=== PATIENT | male | born 1950 | race Caucasian/White ===

== ENCOUNTER → 2016-02-14 | Day surgery (SDC) | payer MEDICAID ==
[~2016-02-14] MED LIST: MIDAZOLAM 2 MG/2 ML VIAL ONE; PROPOFOL 200 MG/20 ML VIAL ONE
--- NOTE | 2016-02-14 10:56 | GPN ---
[f rep st] PROCEDURE NOTE PREPROCEDURE DIAGNOSIS: Need for screening colonoscopy. POSTPROCEDURE DIAGNOSIS: Small colon polyps removed. PROCEDURES: Colonoscopy with biopsies. ANESTHESIA: Monitored anesthesia care. INDICATIONS: The patient is a 65-year-old gentleman, without history of colon cancer in the family. He is here for his first screening colonoscopy. He has no symptoms. The risks, benefits of procedu re were discussed with the patient and consent obtained. Risks include, but not limited to, bleeding , perforation, risks related to sedation. The patient is ASA class 2. DESCRIPTION OF PROCEDURE: The adult colonoscope was advanced to the terminal ileum with ease. The t erminal ileum appears normal. The appendiceal orifice, cecum, IC valve, ascending colon, hepatic fle xure, appears normal. There was a 2 mm polyp in the transverse colon, which was removed with cold bi opsy forceps and sent off to Pathology. Splenic flexure was normal. The descending colon was normal . The sigmoid colon showed mild diverticulosis. The rectum showed a small 2 mm polyp which was netta roxy with cold biopsy forceps. Retroflexed views in the rectum were normal. IMPRESSION: 1. 2 small colon polyps, removed using cold biopsy forceps, one from the transverse colon and one fr om the rectum. 2. Mild left-sided diverticulosis. RECOMMENDATIONS: 1. Discharge to home with escort. 2. Advance diet as tolerated. He should be on a high-fiber diet. 3. Continue current medications. 4. Follow up with the final pathology results. They will be available within 10 days. 5. Repeat colonoscopy based on pathology results. If either biopsy shows an adenomatous polyp, he s hould have repeat colonoscopy in 5 years. Thank you for allowing me to participate in the care of your patient. Please do not hesitate to call with questions. /[id number]/MODL
== END | disposition home or self-care (01) ==
LOC: FSGY 07:32
PROVIDERS: ATTEND Internal Medicine Gastroenterology
PROC: 0DBL8ZX Excision of Transverse Colon, Via Natural or Artificial Opening Endoscopic, Diagnostic (ICD-10-PCS; principal; 2016-02-14 09:30)
PROC: 0DBP8ZX Excision of Rectum, Via Natural or Artificial Opening Endoscopic, Diagnostic (ICD-10-PCS; principal; 2016-02-14 09:30)
DX: K62.1 Rectal polyp (principal); K63.5 Polyp of colon; K57.30 Diverticulosis of large intestine without perforation or abscess without bleeding; I10 Essential (primary) hypertension
CPT/HCPCS: J2250; J2704

== ENCOUNTER → 2016-07-12 | Outpatient (CLI) | payer MEDICAID ==
[~2016-07-12] MED LIST changes: +GADOBUTROL 10 ML VIAL IVP ONE; -MIDAZOLAM 2 MG/2 ML VIAL ONE; -PROPOFOL 200 MG/20 ML VIAL ONE
== END ==
LOC: FIMAGING 11:26
PROVIDERS: ATTEND Physician Assistant
DX: I77.810 Thoracic aortic ectasia (principal)
CPT/HCPCS: A9585; C8909

== ENCOUNTER → 2017-07-09 | Outpatient (CLI) | payer MEDICAID | LOC: FIMAGING 07:01 | PROVIDERS: ATTEND Physician Assistant | DX: R93.1 Abnormal findings on diagnostic imaging of heart and coronary circulation (principal) | CPT/HCPCS: A9585; C8909 ==

== ENCOUNTER 2017-07-17 06:26 | Emergency (ER) | payer MEDICAID ==
[2017-07-17 06:31] VITALS: BP 176/95
[2017-07-17] MEDS ORDERED: TDAP ADULT 0.5 ML INJ (BOOSTRIX) IM ONE (06:40)
--- NOTE | 2017-07-17 06:44 | EDPHY ---
H & P Stated Complaint: Lac, L index finger - Personal History Current Tetanus Diphtheria and Acellular Pertussis (TDAP): No - Medical/Surgical History Hx Asthma: No Hx Chronic Respiratory Disease: No Hx Diabetes: No Hx Cardiac Disease: No Hx Renal Disease: No Hx Cirrhosis: No Hx Alcoholism: No Hx HIV/AIDS: No Hx Splenectomy or Spleen Trauma: No Other PMH: Hep C - Social History Smoking Status: Never smoked Time Seen by Provider: 07/17/17 06:39 HPI/ROS: Chief Complaint: Finger injury HPI: 66-year-old male states that he was camping. He accidentally dropped a rock he was holding with his right hand into his left index finger. He sustained a laceration to the side of his finger. Denies prior injuries. He is not up-to-date in his tetanus shot. ROS: 10 point Review of Systems is negative except as noted in the HPI. PMH: Hypertension Social History: No smoking, no alcohol, no recreational drug use Family History: non-contributory Physical Exam: General: Awake, alert, no acute distress Left hand: Patient has edema over his PIP joint. There is a laceration on that ulnar aspect of his finger which extends from his proximal to his middle phalanx. Sensation is intact medial laterally distally. He has full flexion extension strength. Capillary refills less than 2 sec. He has no tenderness along the flexor extensor tendon sheath. There is no erythema. There is no discharge. Skin: No rash (Rodríguez Mejía) Constitutional: Initial Vital Signs Temperature (C) 36.8 C 07/17/17 06:29 Heart Rate 58 L 07/17/17 06:29 Respiratory Rate 20 07/17/17 06:29 Blood Pressure 176/95 H 07/17/17 06:29 O2 Sat (%) 96 07/17/17 06:29 O2 Delivery Mode Room Air Allergies/Adverse Reactions: No Known Allergies Allergy (Verified 07/17/17 06:28) Home Medications: Medication Instructions Recorded Hydrochlorothiazide [HCTZ (*)] 07/28/11 Lisinopril [Zestril 10 mg (*)] 07/28/11 Reconciled 07/28/11 See Comments 07/28/11 Cephalexin [Keflex (*)] 500 mg PO BID #10 cap 07/17/17 Medical Decision Making Procedures: Procedure: Digital nerve block, indication is digit anesthesia for procedure. Patient was prepped with chlorhexidine Skin prep. 0.5% bupivacaine was infiltrated in the medial in lateral aspects with a dorsal approach at the base of the proximal phalanx with blockage of both dorsal and volar nerves. Total of 1 mL was infiltrated. There were no complications. Procedure was performed by myself. Procedure: Laceration repair. Verbal consent was obtained from the patient. The 2.5 cm laceration on the left index finger was anesthetized with a digital nerve block.. The wound was irrigated, draped and explored to its base with a gloved finger. There were no deep structures involved. No tendon injury was identified. The wound was repaired with 6, 5-0 Ethilon simple interrupted sutures. The wound repair was uncomplicated. The procedure was performed by myself. (Rodríguez Mejía) ED Course/Re-evaluation: 66-year-old male sustained a crush injury to his left index finger. He is neurovascularly intact. Has full flexion extension strength. Minimal bony tenderness but he has edema to his PIP joint. He has been anesthetize the digital nerve block. I have ordered a tetanus booster. I have ordered an x- ray to rule out acute bony injury or foreign body. There is a small avulsion fracture on the middle phalanx. Wound has been closed by me. Will send him home with Keflex. Referred for hand surgery for outpatient follow-up. (Rodríguez Mejía) - Data Points Medications Given: Discontinued Medications Diphtheria/Tetanus/Acell Pertussis (Boostrix) 0.5 ml IM .ONCE ONE Stop: 07/17/17 06:41 Last Admin: 07/17/17 06:44 Dose: 0.5 ml Departure - Departure Disposition: Home, Routine, Self-Care Clinical Impression: Finger laceration Qualifiers: Encounter type: initial encounter Finger: index finger Damage to nail status: without damage Foreign body presence: without foreign body Laterality: left Qualified Code(s): S61.211A - Laceration without foreign body of left index finger without damage to nail, initial encounter Open finger fracture Qualifiers: Encounter type: initial encounter Finger: index finger Phalanx: middle Fracture alignment: nondisplaced Laterality: left Qualified Code(s): S62.651B - Nondisplaced fracture of middle phalanx of left index finger, initial encounter for open fracture Condition: Good Instructions: Diphtheria/Acellular Pertussis/Tetanus Booster Vaccine (By injection), Finger Laceration (ED) Additional Instructions: Sutures need to be removed in 10 days. Follow up with hand surgeon in 3-4 days for further evaluation. Return to the emergency department for increasing redness, discharge from the wound, fevers or chills, red streaking up your hand, worsening pain, or any other concerns. Referrals: Lizzette Herrera [Primary Care Provider] - As per Instructions Kody Lange MD [Medical Doctor] - As per Instructions Prescriptions: Cephalexin [Keflex (*)] 500 mg PO BID #10 cap
== END 2017-07-17 07:39 | disposition home or self-care (01) ==
PROC: 0HQGXZZ Repair Left Hand Skin, External Approach (ICD-10-PCS; principal; 2017-07-17)
DX: S62.651B Nondisplaced fracture of middle phalanx of left index finger, initial encounter for open fracture (principal); I10 Essential (primary) hypertension; Z23 Encounter for immunization; W20.8XXA Other cause of strike by thrown, projected or falling object, initial encounter

== ENCOUNTER 2017-10-24 13:06 | Day surgery (SDC) | payer MEDICAID ==
--- NOTE | 2017-10-23 16:37 | GHP ---
ADMISSION DIAGNOSIS: Ureteral calculus. Shows referred by Dr. Lizzette Herrera for evaluation of hematuria and left flank pain and CAT scan revealed an 8 x 5 mm left ureteral stone with moderate hydronephrosis. He also has significant BPH and he is admitted for ureteroscopy. PAST HISTORY: Hydrocele, kidney stones, hypertension, and hematuria. PAST SURGERY: Pyloric stenosis, hand surgery, appendectomy. MEDICATIONS: hydrochlorothiazide. ALLERGIES: None. FAMILY HISTORY: Hypertension. SOCIAL HISTORY: Nondrinker, unemployed, nonsmoker. REVIEW OF SYSTEMS: Negative for cardiac, respiratory, GI, and endocrine. PHYSICAL EXAM: VITAL SIGNS: Stable with a blood pressure of 176/102, in the office BMI of 25.84. CHEST: Clear. HEART: Regular rate and rhythm. ABDOMEN: Normal. No organomegaly, rebound, or guarding. GENITAL: He does have bilateral hydroceles. LOWER EXTREMITIES: Normal. He is admitted for the above procedure. Indications, complications discussed. Written and verbal consent were obtained and he is admitted as noted. /[id number]/MODL MTDD
--- NOTE | 2017-10-24 07:52 | PDHPUP ---
History & Physical Update H&P update statement: This history and physical update is based on an assessment of the patient which was completed after admission or registration (within 24 hours), but prior to the surgery/procedure. H&P update: H&P reviewed & patient examined, no change in patient's condition since H&P completed
[2017-10-24] MEDS ORDERED: ceFAZolin 2 GM/DEXTROSE 100 ML IV ONE (13:21)
[2017-10-24] MEDS ORDERED: LR 1,000 ML IV ONE (13:22)
[2017-10-24] MEDS ORDERED: IOPAMIDOL (ISOVUE-M 300) 15 ML VIAL ONE (13:33)
[2017-10-24] MEDS ORDERED: LIDOCAINE 2% JELLY 20 ML (UROJECT) ONE ×2 (13:33→14:14)
--- NOTE | 2017-10-24 14:13 | PDANEPAE ---
ANE Past Medical History - Cardiovascular History Hx Hypertension: Yes Hx Arrhythmias: No Hx Chest Pain: No Hx Coronary Artery / Peripheral Vascular Disease: No Hx CHF / Valvular Disease: No Hx Palpitations: No - Pulmonary History Hx COPD: No Hx Asthma/Reactive Airway Disease: No Hx Recent Upper Respiratory Infection: No Hx Oxygen in Use at Home: No Hx Sleep Apnea: No Pulmonary History Comment: epiglottis flap "sealing". - Neurologic History Hx Cerebrovascular Accident: Yes Hx Seizures: No Hx Dementia: No Neurologic History Comment: CVA - no deficits - Endocrine History Hx Diabetes: No - Renal History Hx Renal Disorders: No Renal History Comment: kidney stones - - Liver History Hx Hepatic Disorders: Yes Hepatic History Comment: Hepatitis A from seafood in [place]- remote hx. - Neurological & Psychiatric Hx Hx Neurological and Psychiatric Disorders: No - Cancer History Hx Cancer: No - Congenital Disorder History Hx Congenital Disorders: No - GI History Hx Gastrointestinal Disorders: Yes Gastrointestinal History Comment: 12-26 epiglottis flap was ineffective- Speech Tx helps pt manage it. - Chronic Pain History Chronic Pain: No - Surgical History Prior Surgeries: appy age 18, pyloric stenosis, right hand surgery ANE Review of Systems Review of Systems: - Exercise capacity METS (RN): 4 METS ANE Patient History - Allergies Allergies/Adverse Reactions: No Known Allergies Allergy (Verified 07/17/17 06:28) - Home Medications Home Medications: Atorvastatin Calcium 10/24/17 [Last Taken 10/24/17] Losartan/Hydrochlorothiazide 10/24/17 [Last Taken 10/24/17] - NPO status NPO Since - Liquids (Date): 10/24/17 NPO Since - Liquids (Time): 11:30 NPO Since - Solids (Date): 10/23/17 NPO Since - Solids (Time): 19:00 - Smoking Hx Smoking Status: Never smoked - Family Anes Hx Family Hx Anesthesia Complications: None. ANE Labs/Vital Signs - Vital Signs Blood Pressure: 137/84 Heart Rate: 56 Respiratory Rate: 18 O2 Sat (%): 95 Height: 172.72 cm Weight: 79.832 kg ANE Physical Exam - Airway Neck exam: FROM Mallampati Score: Class 2 Mouth exam: normal dental/mouth exam - Pulmonary Pulmonary: no respiratory distress - Cardiovascular Cardiovascular: regular rate and rhythym - ASA Status ASA Status: II ANE Anesthesia Plan Anesthesia Plan: general endotracheal anesthesia
[2017-10-24] MEDS ORDERED: MIDAZOLAM 2 MG/2 ML VIAL ONE (14:16)
[2017-10-24] MEDS ORDERED: PROPOFOL 200 MG/20 ML VIAL ONE (14:16)
[2017-10-24] MEDS ORDERED: fentaNYL 100 MCG/2 ML INJ ONE ×2 (14:16)
[2017-10-24] MEDS ORDERED: LIDOCAINE 2% 100 MG/5 ML SYR ONE (14:17)
[2017-10-24] MEDS ORDERED: GLYCOPYRROLATE 0.2 MG/1 ML VIAL ONE ×2 (15:16)
[2017-10-24] MEDS ORDERED: NEOSTIGMINE METHYLSULFATE 5 MG/5 ML SYR ONE (15:16)
--- NOTE | 2017-10-24 15:23 | POSTOPPROG ---
Post Op Note Date of Operation: 10/24/17 (dictated) Surgeon: Kody Hurt Anesthesiologist: Mark Anesthesia: LMA Pre-op Diagnosis: ureterolithiasis Procedure: ureteroscopy, laser, fluoroscopy, stent Inf/Abcess present in the surg proc area at time of surgery?: No EBL: Minimal Drains: Other (stent)
[2017-10-24] MEDS ORDERED: ONDANSETRON 4 MG/2 ML VIAL IVP PRN (15:38)
[2017-10-24] MEDS ORDERED: ACETAMINOPHEN 500 MG TAB PO PRN (15:38)
[2017-10-24] MEDS ORDERED: ALBUTEROL 3 ML DEYVIAL IH PRN (15:38)
[2017-10-24] MEDS ORDERED: NALOXONE HCL 0.4 MG/ML INJ IVP PRN (15:38)
[2017-10-24] MEDS ORDERED: fentaNYL 100 MCG/2 ML INJ IVP PRN (15:38)
--- NOTE | 2017-10-24 15:39 | POSTANESTH ---
Post Anesthetic Evaluation Cardiovascular Status: Similar to Pre-Op Cond Respiratory Status: Similar to Pre-op Cond. Level of Consciousness/Mental Status: Mildly Sleepy, Arousable Pain Control: Adequate, Prn Tx Ordered Nausea/Vomiting Control: Adequate, Prn Tx Ordered Complications Possibly Related to Anesthesia: None Noted
--- NOTE | 2017-10-24 15:48 | GOP ---
DATE OF OPERATION: 10/24/2017 SURGEON: Kody Hurt MD ANESTHESIA: General anesthesia. ANESTHESIOLOGIST: Micah Flores MD. PREOPERATIVE DIAGNOSIS: Left ureteral calculus. POSTOPERATIVE DIAGNOSIS: Left ureteral calculus. PROCEDURE PERFORMED: Cystoscopy, retrograde ureteral pyelogram under fluoroscopy, dilation of ureter , fragmentation of the ureteral stone with laser lithotripsy, and placement of ureteral stent. FINDINGS: SPECIMENS: Stone sent for analysis. DESCRIPTION OF PROCEDURE: After undergoing general anesthesia, being prepped and draped in normal st erile fashion in dorsal lithotomy position, appropriate time-out, the cystoscopy was performed. He h ad mild BPH. Bladder had no tumor, stones, foreign bodies, or diverticula. The left ureteral orific e was cannulated with a Dent catheter and revealed the proximal ureteral calculus. Passed a guide wire beyond the stone. He did have hydronephrosis above the stone, and the stone appeared to be impa cted. At that point, I was able to take the ureteral access sheath and then used the flexible ureter oscope and with a 200 micron fiber of the holmium laser lithotrite and fragmented the stone into piec es. Several pieces floated in the kidney and I was able to fragment those, extracted as much of the stone bulk as I could. At the end of the procedure, I could radiographically see no residual stones. Because of the duration of the stone, hydronephrosis, ureteral inflammation, I placed a 4.7 Multi-L ink stent that curled in the renal pelvis, curled in the bladder, and then, the bladder was emptied. Uro-Jet placed in the urethra. Rectal exam revealed normal small prostate. At the present time, he will be discharged home to have followup with me in the office in 1 week for stent removal. Specimen sent for stone analysis. /[id number]/MODL
[2017-10-24 16:51] VITALS: BP 150/87
== END 2017-10-24 16:52 | disposition home or self-care (01) ==
LOC: FSGY 13:06
PROVIDERS: ATTEND Specialist
PROC: 0T778DZ Dilation of Left Ureter with Intraluminal Device, Via Natural or Artificial Opening Endoscopic (ICD-10-PCS; principal; 2017-10-24 14:30)
PROC: 0TC78ZZ Extirpation of Matter from Left Ureter, Via Natural or Artificial Opening Endoscopic (ICD-10-PCS; principal; 2017-10-24 14:30)
DX: N13.2 Hydronephrosis with renal and ureteral calculous obstruction (principal); I10 Essential (primary) hypertension; Z86.73 Personal history of transient ischemic attack (TIA), and cerebral infarction without residual deficits
CPT/HCPCS: 52356; 76001; C1894; 82365-90; C2625; J0690; J2001; J2250; J2704; J2710; J3010; Q9967